=== PATIENT | male | born 1955 | race Caucasian/White ===

== ENCOUNTER → 2016-12-06 | Outpatient (CLI) | payer OTHER ==
[~2016-12-06] VITALS: Ht 190.5 cm; Wt 74.8 kg
[~2016-12-06] MED LIST: ASPI81TA85 PO; LIDOCAINE 2% INJ 100 MG/5 ML SDV (FOR ANES.) As Ordered ONE; NEXI20CA PO; NS 1,000 ML IV ONE; PROPOFOL 200 MG/20 ML VIAL As Ordered ONE
--- NOTE | 2016-12-06 10:30 | ROOR ---
Patient Name: Albert Bruce Procedure Date: 12/06/2016 10:10 AM Date of : 1955 Age: 61 Room: [facility] Gender: Male Note Status: Finalized Procedure: Total Colonoscopy to Cecum Indications: High risk colon cancer surveillance: Personal history of colonic polyps, Last colonoscopy: 2011 Providers: Howard Maldonado MD Referring MD: LEOLA BHAGAT MD Requesting Provider: Medicines: Monitored Anesthesia Care Complications: No immediate complications. Procedure: Pre-Anesthesia Assessment: - The heart rate, respiratory rate, oxygen saturations, blood pressure, adequacy of pulmonary ventilation, and response to care were monitored throughout the procedure. The Colonoscope was introduced through the anus and advanced to the cecum, identified by appendiceal orifice and ileocecal valve. The colonoscopy was performed without difficulty. The patient tolerated the procedure well. The quality of the bowel preparation was excellent. Findings: The perianal and digital rectal examinations were normal. Non-bleeding internal hemorrhoids were found during retroflexion. The hemorrhoids were small and Grade I (internal hemorrhoids that do not prolapse). No other significant abnormalities were identified in a careful examination of the remainder of the colon. The exam was otherwise without abnormality on direct and retroflexion views. Impression: - Non-bleeding internal hemorrhoids. - The examination was otherwise normal on direct and retroflexion views. - No specimens collected. - The exam was otherwise normal to the cecum. Recommendation: - Patient has a contact number available for emergencies. The signs and symptoms of potential delayed complications were discussed with the patient. Return to normal activities tomorrow. Written discharge instructions were provided to the patient. - High fiber diet. - Discharge patient to home. - Continue present medications. - Repeat colonoscopy in 5 years for surveillance. - Return to referring physician. - The findings and recommendations were discussed with the patient's family. Howard Maldonado MD Howard Maldonado MD 12/06/2016 10:30:12 AM This report has been signed electronically. Number of Addenda: 0 Note Initiated On: 12/06/2016 10:10 AM Estimated Blood Loss: Estimated blood loss: none.
[2016-12-06 11:04] VITALS: BP 120/82
== END | disposition home or self-care (01) ==
LOC: M OPP 09:19
PROVIDERS: ATTEND Internal Medicine Gastroenterology
DX: Z12.11 Encounter for screening for malignant neoplasm of colon (principal); K64.0 First degree hemorrhoids; Z86.010 Personal history of colon polyps; R12 Heartburn; K21.9 Gastro-esophageal reflux disease without esophagitis; G47.30 Sleep apnea, unspecified; R06.83 Snoring; F17.290 Nicotine dependence, other tobacco product, uncomplicated; Z88.0 Allergy status to penicillin; Z79.899 Other long term (current) drug therapy; Z79.82 Long term (current) use of aspirin; Z80.8 Family history of malignant neoplasm of other organs or systems; Z80.3 Family history of malignant neoplasm of breast

== ENCOUNTER → 2018-11-09 | Outpatient (REF) | payer OTHER ==
[~2018-11-09] MED LIST changes: -LIDOCAINE 2% INJ 100 MG/5 ML SDV (FOR ANES.) As Ordered ONE; -NS 1,000 ML IV ONE; -PROPOFOL 200 MG/20 ML VIAL As Ordered ONE
[2018-11-09 12:24] LABS: BASO % 1.2 % (0.0-1.0); EOS % 0.3 % (0.0-3.0); HEMATOCRIT 41.4 % (42.0-52.0); HEMOGLOBIN 13.2 g/dl (13.5-17.5); MEAN CORPUSCULAR HEMOGLOBIN 28.4 pg (27.0-33.0); MEAN CORPUSCULAR HGB CONC 31.9 g/dl (32.0-36.5); MONO # 0.3 10^3/uL (0.0-0.8); NEUTROPHILS # 1.9 10^3/uL (1.8-7.7); NEUTROPHILS % 58.2 % (36.0-66.0); PLATELET COUNT, AUTOMATED 226 10^3/uL (150-450); RED BLOOD COUNT 4.65 10^6/uL (4.30-6.10); WHITE BLOOD COUNT 3.2 10^3/uL (4.0-10.0)
[2018-11-09 12:43] LABS: ALBUMIN 3.7 GM/DL (3.2-5.2); ALT/SGPT 28 U/L (12-78); BILIRUBIN,TOTAL 0.4 MG/DL (0.2-1.0); BLOOD UREA NITROGEN 23 MG/DL (7-18); CALCIUM LEVEL 8.4 MG/DL (8.8-10.2); CARBON DIOXIDE LEVEL 29 MEQ/L (21-32); CHLORIDE LEVEL 108 MEQ/L (98-107); CHOLESTEROL LEVEL 194 MG/DL (<200); CHOLESTEROL RISK RATIO 2.811 (<5); CREATININE FOR GFR 0.89 MG/DL (0.70-1.30); GLOMERULAR FILTRATION RATE > 60.0 (>49); GLUCOSE, FASTING 105 MG/DL (70-100); HDL CHOLESTEROL 69 MG/DL (>40); LDL CHOLESTEROL 117 MG/DL (<100); NON-HDL-C 125 MG/DL; POTASSIUM SERUM 4.7 MEQ/L (3.5-5.1); SODIUM LEVEL 141 MEQ/L (136-145); TRIGLYCERIDES LEVEL 41 MG/DL (<150)
== END ==
LOC: M SFHCCLAY 08:01
PROVIDERS: ATTEND Nurse Practitioner Family
DX: Z00.00 Encounter for general adult medical examination without abnormal findings (principal); Z13.220 Encounter for screening for lipoid disorders; Z86.008 Personal history of in-situ neoplasm of other site

== ENCOUNTER → 2018-11-28 | Outpatient (REF) | payer OTHER ==
[2018-11-28 19:20] LABS: BASO % 0.9 % (0.0-1.0); EOS # 0.1 10^3/uL (0.0-0.50); EOS % 1.2 % (0.0-3.0); HEMATOCRIT 38.4 % (42.0-52.0); HEMOGLOBIN 12.4 g/dl (13.5-17.5); LYMPH # 1.8 10^3/uL (1.5-4.5); LYMPH % 42.6 % (24.0-44.0); MEAN CORPUSCULAR HEMOGLOBIN 28.7 pg (27.0-33.0); MEAN CORPUSCULAR HGB CONC 32.3 g/dl (32.0-36.5); MEAN CORPUSCULAR VOLUME 88.9 fl (80.0-96.0); MONO # 0.4 10^3/uL (0.0-0.8); MONO % 8.4 % (0.0-5.0); NEUTROPHILS % 46.7 % (36.0-66.0); PLATELET COUNT, AUTOMATED 221 10^3/uL (150-450); RED BLOOD COUNT 4.32 10^6/uL (4.30-6.10); WHITE BLOOD COUNT 4.3 10^3/uL (4.0-10.0)
[2018-11-28 19:36] LABS: HEMOGLOBIN A1c 5.5 %
== END ==
LOC: M SFHCCLAY 13:42
PROVIDERS: ATTEND Nurse Practitioner Family
DX: R73.9 Hyperglycemia, unspecified (principal); D64.9 Anemia, unspecified
CPT/HCPCS: 82607; 83036; 83550; 84425; 85025; G0463

== ENCOUNTER 2019-04-18 12:26 | Day surgery (SDC) | payer MEDICARE, OTHER ==
[~2019-04-18] VITALS: Ht 193 cm; Wt 85.7 kg
[~2019-04-18 12:26] MED LIST changes: +NS 1,000 ML IV ONE; +PROTPAK PO
[2019-04-18] MEDS ORDERED: PROPOFOL 200 MG/20 ML VIAL As Ordered ONE (13:21)
[2019-04-18] MEDS ORDERED: LIDOCAINE 2% INJ 100 MG/5 ML SDV (FOR ANES.) As Ordered ONE (13:21)
[2019-04-18] MEDS ORDERED: fentaNYL 100 MCG/2 ML INJECTION (J3010) As Ordered ONE (14:07)
--- NOTE | 2019-04-18 14:21 | ROOR ---
Patient Name: Albert Bruce Procedure Date: 04/18/2019 2:06 PM Date of : 1955 Age: 64 Room: [facility] Gender: Male Note Status: Finalized Procedure: Upper Endoscopy + Biopsies Indications: Heartburn, Exclusion of Girard's esophagus Providers: Howard Maldonado MD Referring MD: Julia Layton NP Requesting Provider: Medicines: Monitored Anesthesia Care Complications: No immediate complications. Procedure: Pre-Anesthesia Assessment: - The heart rate, respiratory rate, oxygen saturations, blood pressure, adequacy of pulmonary ventilation, and response to care were monitored throughout the procedure. The Endoscope was introduced through the mouth, and advanced to the second part of duodenum. The upper GI endoscopy was accomplished without difficulty. The patient tolerated the procedure well. Findings: The Z-line was regular and was found 45 cm from the incisors. Multiple biopsies were obtained with cold forceps for evaluation to rule out Girard's Esophagus randomly at the gastroesophageal junction. Localized mild inflammation characterized by congestion (edema) and erythema was found in the gastric antrum. Biopsies were taken with a cold forceps for Helicobacter pylori testing. The exam of the duodenum was otherwise normal. Impression: - Z-line regular, 45 cm from the incisors. - Mucosal changes suspicious for gastritis. Biopsied. - Multiple biopsies were obtained at the gastroesophageal junction. - The examination was otherwise normal. Recommendation: - Patient has a contact number available for emergencies. The signs and symptoms of potential delayed complications were discussed with the patient. Return to normal activities tomorrow. Written discharge instructions were provided to the patient. - High fiber diet. - Discharge patient to home. - Continue present medications. - Await pathology results. - Telephone GI clinic for pathology results in 1 week. - Return to referring physician. - The findings and recommendations were discussed with the patient's family. Howard Maldonado MD Howard Maldonado MD 04/18/2019 2:21:19 PM Electronically signed by Howard Maldonado MD Number of Addenda: 0 Note Initiated On: 04/18/2019 2:06 PM Estimated Blood Loss: Estimated blood loss: none.
[2019-04-18 14:47] VITALS: BP 148/87
== END 2019-04-18 14:50 | disposition home or self-care (01) ==
LOC: M OPP 12:26
PROVIDERS: ATTEND Internal Medicine Gastroenterology
DX: R12 Heartburn (principal); K31.89 Other diseases of stomach and duodenum; G47.30 Sleep apnea, unspecified; Z79.899 Other long term (current) drug therapy; Z88.0 Allergy status to penicillin
CPT/HCPCS: 43239; 88305; J3010

== ENCOUNTER → 2019-07-11 | Outpatient (REF) | payer MEDICARE, OTHER ==
[~2019-07-11] MED LIST changes: -NS 1,000 ML IV ONE
== END ==
LOC: M LAB REF 15:35
PROVIDERS: ATTEND Orthopaedic Surgery Hand Surgery
DX: M85.441 Solitary bone cyst, right hand (principal); L90.5 Scar conditions and fibrosis of skin

== ENCOUNTER → 2019-07-13 | Outpatient (REF) | payer MEDICARE, OTHER ==
[2019-07-13 15:55] LABS: APPEARANCE, URINE CLEAR (CLEAR); BACTERIA, URINE AUTO NEGATIVE (NEGATIVE); BILIRUBIN, URINE AUTO NEGATIVE (NEGATIVE); BLOOD, URINE BLOOD NEGATIVE (NEGATIVE); COLOR, URINE YELLOW (YELLOW); GLUCOSE, URINE (UA) AUTO NEGATIVE (NEGATIVE); KETONE, URINE AUTO NEGATIVE (NEGATIVE); LEUKOCYTE ESTERASE, URINE AUTO NEGATIVE (NEGATIVE); MUCUS, URINE SMALL (NEGATIVE); NITRITE, URINE AUTO NEGATIVE (NEGATIVE); PROTEIN, URINE AUTO NEGATIVE (NEGATIVE); RBC, URINE AUTO 1 /HPF (0-3); SPECIFIC GRAVITY URINE AUTO 1.013 (1.002-1.035); SQUAMOUS EPITHELIAL CELL UR AU 0 /HPF (0-6); UROBILINOGEN, URINE AUTO 0.2 mg/dL (0.0-2.0); WBC, URINE AUTO 0 /HPF (0-3)
== END ==
LOC: M SMT 13:23
PROVIDERS: ATTEND Nurse Practitioner Family
DX: N41.9 Inflammatory disease of prostate, unspecified (principal)
CPT/HCPCS: 51798; 81001; 87086; G0463

== ENCOUNTER → 2019-09-20 | Outpatient (REF) | payer MEDICARE, OTHER | LOC: M LAB REF 10:23 | PROVIDERS: ATTEND Dermatology | DX: C44.320 Squamous cell carcinoma of skin of unspecified parts of face (principal); L90.5 Scar conditions and fibrosis of skin ==

== ENCOUNTER → 2020-03-20 | Outpatient (REF) | payer MEDICARE, OTHER ==
[~2020-03-20] MED LIST changes: -ASPI81TA85 PO; +ASPI81TA86 PO
[2020-03-20 11:42] LABS: BASO # 0.1 10^3/uL (0.0-0.2); BASO % 1.2 % (0.0-1.0); EOS # 0.1 10^3/uL (0.0-0.5); EOS % 2.6 % (0.0-3.0); HEMATOCRIT 45.3 % (42.0-52.0); HEMOGLOBIN 14.5 g/dl (13.5-17.5); LYMPH # 1.9 10^3/uL (1.5-5.0); LYMPH % 44.7 % (24.0-44.0); MEAN CORPUSCULAR HEMOGLOBIN 29.2 pg (27.0-33.0); MEAN CORPUSCULAR VOLUME 91.3 fl (80.0-96.0); MONO # 0.5 10^3/uL (0.0-0.8); MONO % 11.8 % (0.0-5.0); NEUTROPHILS # 1.6 10^3/uL (1.5-8.5); NEUTROPHILS % 39.5 % (36.0-66.0); PLATELET COUNT, AUTOMATED 225 10^3/uL (150-450); RED BLOOD COUNT 4.96 10^6/uL (4.30-6.10); WHITE BLOOD COUNT 4.2 10^3/uL (4.0-10.0)
[2020-03-20 12:23] LABS: ALBUMIN 3.8 GM/DL (3.2-5.2); ALT/SGPT 27 U/L (12-78); BILIRUBIN,TOTAL 0.5 MG/DL (0.2-1.0); BLOOD UREA NITROGEN 19 MG/DL (7-18); CALCIUM LEVEL 8.8 MG/DL (8.8-10.2); CARBON DIOXIDE LEVEL 32 MEQ/L (21-32); CHLORIDE LEVEL 106 MEQ/L (98-107); CHOLESTEROL LEVEL 218 MG/DL (<200); CHOLESTEROL RISK RATIO 3.159 (<5); CREATININE FOR GFR 0.96 MG/DL (0.70-1.30); FREE T4 0.82 NG/DL (0.76-1.46); GLOMERULAR FILTRATION RATE > 60.0 (>49); GLUCOSE, FASTING 91 MG/DL (70-100); HDL CHOLESTEROL 69 MG/DL (>40); IRON (FE) 69 UG/DL (65-175); LDL CHOLESTEROL 140 MG/DL (<100); NON-HDL-C 149 MG/DL; POTASSIUM SERUM 4.9 MEQ/L (3.5-5.1); SODIUM LEVEL 141 MEQ/L (136-145); TOTAL PROTEIN 6.8 GM/DL (6.4-8.2); TRIGLYCERIDES LEVEL 47 MG/DL (<150)
== END ==
LOC: M SFHCCLAY 07:15
PROVIDERS: ATTEND Nurse Practitioner Family
DX: D50.9 Iron deficiency anemia, unspecified (principal); K21.9 Gastro-esophageal reflux disease without esophagitis; Z13.220 Encounter for screening for lipoid disorders; Z00.00 Encounter for general adult medical examination without abnormal findings; E07.9 Disorder of thyroid, unspecified; E78.00 Pure hypercholesterolemia, unspecified

== ENCOUNTER → 2020-09-19 | Outpatient (REF) | payer MEDICARE, OTHER | LOC: M SFHCCLAY 13:09 | PROVIDERS: ATTEND Physician Assistant | DX: R33.9 Retention of urine, unspecified (principal) | CPT/HCPCS: 81002; 87086; G0463 ==

== ENCOUNTER → 2020-09-23 | Outpatient (REF) | payer MEDICARE, OTHER | LOC: M SFHCCLAY 10:26 | PROVIDERS: ATTEND Physician Assistant | DX: R33.9 Retention of urine, unspecified (principal) ==

== ENCOUNTER 2020-11-07 09:47 | Inpatient (IN) | payer MEDICARE, OTHER ==
[~2020-11-07] VITALS: Ht 195.6 cm; Wt 89.0 kg
[2020-11-07] MEDS ORDERED: MORPHINE 2 MG/ML 1ML VIAL (J2270) IV ONE ×3 (10:05→11:30)
--- NOTE | 2020-11-07 10:31 | REP ---
INDICATION: trauma COMPARISON: None. TECHNIQUE: Three views right ankle. FINDINGS: There is an intra-articular distal tibial fracture. The medial malleolus appears involved as well as the posterior malleolus. There is lateral and posterior displacement of the talar dome with respect to the tibia. There is an oblique fracture of the distal fibula with lateral displacement and angulation. IMPRESSION: Distal tibial and fibular fractures with disruption of the tibiotalar joint as discussed above. <Electronically signed by Mehul Ellison > 11/07/20 1029
--- NOTE | 2020-11-07 10:32 | REP ---
INDICATION: trauma COMPARISON: None. TECHNIQUE: AP and lateral right lower leg. FINDINGS: There is an intra-articular distal tibial fracture. The medial malleolus appears involved as well as the posterior malleolus. There is lateral and posterior displacement of the talar dome with respect to the tibia. There is an oblique fracture of the distal fibula with lateral displacement and angulation. IMPRESSION: Distal tibial and fibular fractures with disruption of the tibiotalar joint as discussed above. <Electronically signed by Mehul Ellison > 11/07/20 1029
[2020-11-07 10:40] LABS: BASO % 0.4 % (0.0-1.0); EOS % 0.5 % (0.0-3.0); HEMATOCRIT 38.7 % (42.0-52.0); HEMOGLOBIN 12.4 g/dl (13.5-17.5); LYMPH # 0.8 10^3/uL (1.5-5.0); LYMPH % 9.9 % (24.0-44.0); MEAN CORPUSCULAR HEMOGLOBIN 29.7 pg (27.0-33.0); MEAN CORPUSCULAR VOLUME 92.8 fl (80.0-96.0); MONO # 0.4 10^3/uL (0.0-0.8); MONO % 5.3 % (2.0-8.0); NEUTROPHILS # 6.4 10^3/uL (1.5-8.5); NEUTROPHILS % 83.6 % (36.0-66.0); PLATELET COUNT, AUTOMATED 218 10^3/uL (150-450); RED BLOOD COUNT 4.17 10^6/uL (4.30-6.10); WHITE BLOOD COUNT 7.7 10^3/uL (4.0-10.0)
[2020-11-07 11:02] LABS: ALBUMIN 3.6 GM/DL (3.2-5.2); BILIRUBIN,DIRECT 0.2 MG/DL (0.0-0.2); BILIRUBIN,TOTAL 0.4 MG/DL (0.2-1.0); TOTAL PROTEIN 6.7 GM/DL (6.4-8.2)
[2020-11-07] MEDS ORDERED: NS 1,000 ML IV SCH (11:40)
[2020-11-07] MEDS: propofoL 200 MG/20 ML VIAL IV.PROC PRN ×12 (11:47→14:36)
--- NOTE | 2020-11-07 15:02 | REP ---
INDICATION: reduction. COMPARISON: None. TECHNIQUE: Two spot views of the right ankle were obtained using a portable C-arm device status post close reduction in my absentia. 24 seconds of fluoroscopy time was provided for the exam. FINDINGS: The previously described tibiotalar subluxation has been reduced. Follow-up with plain radiography is recommended due to the limitations of this exam. IMPRESSION: As above <Electronically signed by Pierre Matos > 11/07/20 [id number]
[2020-11-07] MEDS ORDERED: MORPHINE 2 MG/ML 1ML VIAL (J2270) IV PRN (15:20)
[2020-11-07] MEDS: ACETAMINOPHEN 500 MG TAB PO SCH ×2 (16:00→21:52)
--- NOTE | 2020-11-07 16:00 | CR ---
CONSULTATION DATE: 11/07/2020 REASON FOR CONSULTATION AND CHIEF COMPLAINT: Right ankle pain and deformity. HISTORY OF PRESENT ILLNESS: The patient is a 65-year-old male who was doing [employer] earlier today when he sustained a twisting injury to his right lower extremity. He noted immediate onset of pain, swelling and inability to bear weight on his right lower extremity. He presented to the emergency department for further evaluation. Otherwise, he has no other areas of pain, tenderness and no numbness or tingling. PAST MEDICAL HISTORY: GERD and a prior bout of prostatitis, otherwise healthy. PAST SURGICAL HISTORY: Noncontributory. MEDICATIONS: See medical rec conciliation. ALLERGIES: None. REVIEW OF SYSTEMS: A 14 point review of systems was conducted and all was negative except for what is in HPI. 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 PHYSICAL EXAMINATION: GENERAL: He is well-developed, well-nourished, in no acute distress. NEURO: Alert and oriented x4. PSYCH: Normal mood and affect. CARDIAC: Regular rate and rhythm. RESPIRATORY: Nonlabored breathing. Equal chest rise and fall. ABDOMEN: Nontender. SKIN: Intact, no ecchymosis, swelling or breaks in the skin. MUSCULOSKELETAL: Focused exam of right lower extremity demonstrates an obvious deformity about the ankle. The patient is tender to palpation here and his range of motion is limited secondary to pain. He has no tenderness to palpation along the leg or knee or in the foot. He has sensation to light touch in the sural, saphenous, DP and SP and tibial nerves. Motor intact in the EHL, FHL, gastroc-soleus complex, tibialis anterior. He has 2+ PT and DP pulses with brisk capillary refill in all the digits. There are no blisters of the skin and no puckering of the skin. IMAGING: Radiographs of the right ankle demonstrate right ankle fracture dislocation with distal fracture and posterior malleolus fracture. ASSESSMENT: This is a 65-year-old male, otherwise healthy with a right ankle fracture dislocation. PLAN: I had a long discussion with the patient and his in the emergency department regarding his condition. I recommend sedated closed reduction and splint immobilization. Recommend surgical intervention with open reduction and internal fixation to allow him to have a stable ankle and allow for earlier immobilization and getting back to activities. The patient underwent sedation with the emergency department and a closed reduction was performed under fluoroscopy and demonstrated adequate reduction on the AP and lateral films. Now we will have the patient get a CT scan, we will talk to the operating room and we will have him got to the OR likely tomorrow for open reduction and internal fixation, distal fibula and posterior malleolar fracture pending any changes that we see on the CT scan. For now, the patient will get admitted to the hospitalist NPO at midnight, nonweightbearing, right lower extremity, DVT prophylaxis will just be SCD on the contralateral leg at least until surgery. Pain control per primary team and aggressive elevation of the right lower extremity.
[2020-11-07] MEDS ORDERED: SM S160C PO (16:09)
[2020-11-07] MEDS ORDERED: SM M250T PO (16:09)
[2020-11-07] MEDS ORDERED: BACTDSTA PO (16:09)
[2020-11-07 16:35] LABS: INR 1.02; PROTHROMBIN TIME 13.6 SECONDS (12.5-14.3)
[2020-11-07 16:37] LABS: PARTIAL THROMBOPLASTIN TIME 28.6 SECONDS (24.2-38.5)
--- NOTE | 2020-11-07 17:53 | HPEPDOC ---
General Date of Admission Nov 07, 2020 at 15:18 Date of Service: Nov 07, 2020 Chief Complaint The patient is a 65-year-old male admitted with a reason for visit of Closed Fracture Of Distal End Of Rt Tib And Fib. Source: Patient History of Present Illness Mr. Bruce is a 65 year old male who is here after traumatic injury to right foot. He was participating in [employer] and going down the slide, he unexpectedly impacted harder on the right foot. He was taken to the ER and was found to have right ankle fracture. Orthopedic surgeon, Dr. Ndiaye, evaluated patient in the ED. Planned for surgical intervention tomorrow. Otherwise, patient was in good health prior to injury. Denies any fever/chills, chest pain, dyspnea, abdominal pain, diarrhea, or dysuria. Patient will be admitted for planned surgery tomorrow morning. Home Medications Scheduled Magnesium (Magnesium) 250 Mg Tablet, 250 MG PO QHS, (Reported) Saw Hastings (Saw Hastings) 160 Mg Capsule, 160 MG PO DAILY, (Reported) Sulfamethoxazole/Trimethoprim (Sulfamethoxazole-Tmp Ds Tablet) 1 Each Tablet, 1 TAB PO BID, (Reported) Allergies Coded Allergies: amoxicillin (Verified Allergy, Mild, rash, 11/07/20) Past Medical History Medical History 1. History of BCC to right forehead 2. Melanoma in situ left thigh 3. 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 Inguinal hernia repair 1956 2. Tonsillectomy/adenoidectomy 1959 3. Eustachian tube dysfunction, lanced TM 1960 4. Septoplasty from injury 1986 5. Ablation right leg varicose vein 2008 6. Melanoma removal left leg/thigh 1999 7. Mohs right forehead 1998 8. Meniscal repair arthroscopy 2005 Family History Father: at 73 yo. History of pancreatic cancer Mother: at 84 yo. History of non Hodgkin's lymphoma Social History * Smoker: cigar (once a month) Alcohol: occationally Drugs: denies A-FIB/CHADSVASC A-FIB History Current/History of A-Fib/PAF?: No Review of Systems Constitutional: Denies: Chills, Fever Eyes: Denies: Vision change ENT: Denies: Sore Throat Skin: Denies: Rash Pulmonary: Denies: Dyspnea, Cough Cardiovascular: Denies: Chest Pain Gastrointestinal: Denies: Abdominal Pain, Diarrhea Genitourinary: Denies: Dysuria Hematologic: Denies: Bruising Musculoskeletal: Reports: Foot Pain (right) Neurological: Denies: Numbness Psych: Denies: Anxiety, Depression Physical Examination General Exam: Positive: Alert, Cooperative Eye Exam: Positive: EOMI; Negative: Sclera icteric ENT Exam: Positive: Atraumatic Neck Exam: Positive: Supple Chest Exam: Positive: Clear to auscultation Heart Exam: Positive: Rate Normal, Regular Rhythm Abdomen Exam: Positive: Normal bowel sounds, Soft; Negative: Tenderness Extremity Exam: Positive: Other (right leg in caste); Negative: Edema (left leg) Neuro Exam: Positive: Normal Speech, Cranial Nerves 3-12 NL Psych Exam: Positive: Mental status NL, Mood NL Vital Signs Vital Signs Date Time Temp Pulse Resp B/P (MAP) Pulse Ox O2 Delivery O2 Flow Rate FiO2 11/07/20 14:22 Nasal Cannula 2.0 11/07/20 12:45 68 141/83 (102) 100 11/07/20 11:44 100 11/07/20 11:30 18 11/07/20 10:07 95.8 Laboratory Data Labs 24H Laboratory Tests 2 11/07/20 10:20: Immature Granulocyte % (Auto) 0.3, Neutrophils (%) (Auto) 83.6H, Lymphocytes (%) (Auto) 9.9L, Monocytes (%) (Auto) 5.3, Eosinophils (%) (Auto) 0.5, Basophils (%) (Auto) 0.4, Neutrophils # (Auto) 6.4, Lymphocytes # (Auto) 0.8L, Monocytes # (Auto) 0.4, Eosinophils # (Auto) 0.0, Basophils # (Auto) 0.0, Nucleated Red Blood Cells % (auto) 0.0, Total Bilirubin 0.4, Direct Bilirubin 0.2, Aspartate Amino Transf (AST/SGOT) 32, Alanine Aminotransferase (ALT/SGPT) 31, Alkaline Phosphatase 36L, Total Protein 6.7, Albumin 3.6, Albumin/Globulin Ratio 1.2 11/07/20 10:31: POC Glucose (Misc Panel) 105, POC Sodium (Misc Panel) 140, POC Potassium (Misc Panel) 4.5, POC Chloride (Misc Panel) 103, POC Total CO2 (Misc Panel) 23.0, POC Blood Urea Nitrogen (Misc Panel 23, POC Ionized Calcium (Misc Panel) 4.5, POC Creatinine (Misc Panel) 1.2, POC Hematocrit (Misc Panel) 39.0 11/07/20 15:56: Prothrombin Time 13.6, Prothromb Time International Ratio 1.02, Activated Partial Thromboplast Time 28.6 CBC/BMP Laboratory Tests 11/07/20 10:20 Microbiology Microbiology 11/07/20 Respiratory Virus Panel (PCR) ([facility]) - Final, Complete Assessment/Plan Mr. Bruce is a 65 year old male who is here after traumatic injury to right foot. Orthopedic surgeon consulted, Dr. Ndiaye. Plan for surgery tomorrow morning. Plan / VTE VTE Prophylaxis Ordered?: Yes Plan Plan 1. Right ankle fracture -Seen on XR -Pain control with acetaminophen, oxycodone, and IV morphine -Orthopedic surgery, Dr. Ndiaye consulted -Plan for surgery tomorrow -NPO -Hold AM heparin dose 2. DVT ppx -Heparin subQ Disposition: Pending surgery tomorrow VIANEY DALY DO Nov 07, 2020 16:53
[2020-11-07 20:30] VITALS: BP 131/81
[2020-11-07] MEDS ORDERED: HEPARIN SOD (PORCINE) 5000UNITS/ML 1ML VIAL/SYRINGE SC SCH (21:00)
[2020-11-07] MEDS: oxyCODONE 5MG TAB PO PRN (21:52)
[2020-11-08] VITALS (8 sets, daily range): BP systolic 128–153; BP diastolic 80–89
[2020-11-08] MEDS: oxyCODONE 5MG TAB PO PRN ×2 (05:41→20:46)
[2020-11-08] MEDS ORDERED: ONDANSETRON 4MG/2ML VIAL As Ordered ONE (06:04)
[2020-11-08] MEDS ORDERED: LIDOCAINE 2% 100MG/5ML SDV (FOR ANES.) As Ordered ONE (06:04)
[2020-11-08] MEDS ORDERED: propofoL 200 MG/20 ML VIAL As Ordered ONE (06:04)
[2020-11-08] MEDS ORDERED: SUGAMMADEX SODIUM 500 MG/5 ML VIAL (BRIDION) As Ordered ONE (06:04)
[2020-11-08] MEDS ORDERED: dexameTHASONE 4 MG/ML 1ML VIAL (J1100 PER 1MG) As Ordered ONE (06:04)
[2020-11-08] MEDS ORDERED: MIDAZOLAM INJ 2MG/2ML VIAL (J2250 PER 1MG) As Ordered ONE (06:04)
[2020-11-08] MEDS ORDERED: fentaNYL 250 MCG/5 ML INJECTION (J3010) As Ordered ONE (06:04)
[2020-11-08] MEDS ORDERED: ROCURONIUM BROMIDE 50 MG/5 ML VIAL As Ordered ONE (06:04)
[2020-11-08] MEDS ORDERED: ACETAMINOPHEN 1000MG 100ML IV BTL (OFIRMEV) (J0131 PER 10MG) As Ordered ONE (06:05)
[2020-11-08] MEDS ORDERED: PHENYLephrine 500MCG 5ML (100MCG/ML) SYRINGE As Ordered ONE (06:05)
[2020-11-08] MEDS ORDERED: ePHEDrine SULFATE 25 MG/5 ML(5MG/ML) SYRINGE As Ordered ONE (06:05)
[2020-11-08 06:38] LABS: HEMATOCRIT 39.7 % (42.0-52.0); HEMOGLOBIN 12.8 g/dl (13.5-17.5); MEAN CORPUSCULAR HEMOGLOBIN 29.6 pg (27.0-33.0); MEAN CORPUSCULAR HGB CONC 32.2 g/dl (32.0-36.5); MEAN CORPUSCULAR VOLUME 91.9 fl (80.0-96.0); PLATELET COUNT, AUTOMATED 203 10^3/uL (150-450); RED BLOOD COUNT 4.32 10^6/uL (4.30-6.10); WHITE BLOOD COUNT 5.1 10^3/uL (4.0-10.0)
[2020-11-08 07:01] LABS: BLOOD UREA NITROGEN 13 MG/DL (7-18); CARBON DIOXIDE LEVEL 28 MEQ/L (21-32); CHLORIDE LEVEL 107 MEQ/L (98-107); CREATININE FOR GFR 1.02 MG/DL (0.70-1.30); GLOMERULAR FILTRATION RATE > 60.0 (>49); GLUCOSE, FASTING 95 MG/DL (70-100); SODIUM LEVEL 136 MEQ/L (136-145)
--- NOTE | 2020-11-08 07:48 | ECGEPIP ---
[facility] - ED Test Date: 2020-11-07 Pat Name: MULUGETA LOPEZ Department: Room: [place] [address] Gender: Male Ota: STEVE : 1955 Requested By: Jeannette Villegas Order Number: [id number] Reading MD: Brian Rebolledo Measurements Intervals [place] Rate: 60 P: 62 ID: [id number] QRS: -28 QRSD: 82 T: 31 QT: 378 QTc: 378 Interpretive Statements Normal sinus rhythm Comparison tracing not on file Electronically Signed on 11-08-2020 7:48:21 EDT by Brian Rebolledo
[2020-11-08] MEDS ORDERED: LIDOCAINE 1% MDV 20ML VIAL XX ONE (08:25)
[2020-11-08] MEDS ORDERED: ROPIvacaine 0.5% 30ML INJECTION (J2795 PER 1MG) XX ONE (08:25)
[2020-11-08] MEDS ORDERED: dexameTHASONE 10MG/1ML VIAL PRES.FREE (J1100 PER 1MG) As Ordered ONE (08:32)
[2020-11-08] MEDS ORDERED: ceFAZolin 2 GM/D5W 50 ML IV BAG (J0690 PER 500MG) As Ordered ONE ×2 (08:34→12:34)
[2020-11-08] MEDS ORDERED: TRANEXAMIC ACID 100 MG/ML 10ML VIAL As Ordered ONE (08:35)
[2020-11-08] MEDS: fentaNYL 100 MCG/2 ML INJECTION (J3010) IV PRN ×3 (08:36→14:40)
[2020-11-08] MEDS: MIDAZOLAM INJ 2MG/2ML VIAL (J2250 PER 1MG) IV PRN ×2 (08:36→08:41)
[2020-11-08] MEDS: ACETAMINOPHEN 500 MG TAB PO SCH ×3 (09:00→18:47)
[2020-11-08] MEDS ORDERED: MEPERIDINE INJ 25 MG/ML VIAL (J2175) As Ordered ONE (13:39)
--- NOTE | 2020-11-08 13:53 | REP ---
INDICATION: FLUORO GUIDANCE. COMPARISON: None. TECHNIQUE: 13 fluoroscopic spot views obtained in my absentia during ORIF of previously described ankle fracture. 106.9 seconds of fluoroscopy time was provided for the exam FINDINGS: Previously described tibial and fibular fractures have been open the reduced and internally fixed. The alignment appears near anatomical. IMPRESSION: As above. Consider standard radiograph follow-up. <Electronically signed by Pierre Matos > 11/08/20 [id number]
--- NOTE | 2020-11-08 14:30 | REP ---
INDICATION: S/P ORIF RIGHT ANKEL, 3 VIEW REQUESTED. COMPARISON: None. TECHNIQUE: 3 limited views status post ORIF with cast in place FINDINGS: The previously described fractures have been openly reduced and internally fixed with internal fixation plate and screws. The alignment is near anatomical. Overlying casting material obscures the bony detail. IMPRESSION: As above <Electronically signed by Pierre Matos > 11/08/20 [id number]
[2020-11-08] MEDS ORDERED: ONDANSETRON 4MG/2ML VIAL IV PRN ×2 (14:50→16:20)
[2020-11-08] MEDS ORDERED: oxyCODONE 5MG TAB PO PRN (14:50)
[2020-11-08] MEDS ORDERED: LR 1,000 ML IV SCH (14:50)
[2020-11-08] MEDS ORDERED: MEPERIDINE INJ 25 MG/ML VIAL (J2175) IV PRN (14:50)
[2020-11-08] MEDS ORDERED: fentaNYL 100 MCG/2 ML INJECTION (J3010) IV PRN (14:50)
--- NOTE | 2020-11-08 15:54 | RO ---
OPERATIVE NOTE DATE OF OPERATION: 11/08/2020 PREOPERATIVE DIAGNOSIS: Right ankle unstable fracture. POSTOPERATIVE DIAGNOSIS: Right ankle unstable fracture. OPERATION PERFORMED: Right ankle open reduction and internal fixation, bimalleolar type. SURGEON: Chet Ndiaye MD SHEET HEATER HELPER: ANESTHESIA: INDICATION FOR OPERATION: The patient is a 65-year-old male who was doing a Tough Mudder the day prior to surgery, who sustained a twisting injury to his right ankle. He sustained a right ankle fracture dislocation that was closed with a distal fibular fracture and a posterior malleolar fracture. He was closed reduced in the emergency department and was planned to go to the operating room for ankle stabilization today. He underwent open reduction and internal fixation of his right ankle. Before surgery, he was counseled on risks and benefits of the surgery and risks of the surgery to include but not limited to bleeding, infection, damage to nearby structures, pain, stiffness, need for further surgery. He was able to sign an informed consent. All questions were answered to his full satisfaction. MATERIAL FORWARDED: None. DESCRIPTION OF FINDINGS: The patient had a large posterior malleolar fragment that reduced easily after provisional reduction of the fibula. Contralateral ankle x-ray was obtained demonstrating that both ankles when in their anatomic position appear slightly short relative to the "dime sign" seen on the AP and mortise view of the ankle. This confirmed that once we had reduced the fibula, it was indeed out to length compared to the contralateral side. Stress test was done after final fixation of the posterior malleolus and fibula and demonstrated no increased medial clear space or increased talar translation laterally. The skin was then closed without any concern. INFECTION CLASSIFICATION: 1, clean. ESTIMATED BLOOD LOSS: 75 mL DESCRIPTION OF OPERATION: The patient was met in the preoperative holding area where the correct name, identity, operative site, laterality and procedure were verified to be correct without discrepancies. The operative site was marked by myself. The patient underwent a preoperative block by anesthesia. He was then taken to the operating room by nursing and anesthesia providers. He underwent general anesthetic and placed under general anesthesia without complication. He then had his splint removed and the right lower extremity was then cleaned with Hibiclens and isopropyl alcohol. A thigh pneumatic tourniquet was placed on the right lower extremity. The patient was then transitioned from supine in the gurney to prone on the operative bed. All bony prominences were padded in standard fashion. After he was positioned and we were happy, x-ray came in and confirmed that we had appropriate positioning and to allow for adequate x-rays of the right ankle during surgery. The right lower extremity was then bolstered appropriately to allow for easier lateral view without getting the other ankle involved with the x-ray. Also please note that x-ray was taken of the contralateral ankle intraop as stated previously above to use as a comparison view for fibular length. Once we were satisfied with the positioning, the patient's right lower extremity was then prepped and draped in the usual sterile fashion. A timeout was then called and the patient's name, identity, operative site, laterality and procedure were verified without discrepancies. It was also confirmed the patient received weight based Ancef within one hour of incision. He also received 1 gm of tranexamic acid before surgery started as well. Next, the bony landmarks were marked for the fibula as well as the lateral border of the Achilles tendon. Incision was split between these two landmarks. This area was marked and then an Esmarch was used to exsanguinate the limb and tourniquet was inflated to 250 mmHg. Total tourniquet time was 130 minutes. Next, a posterolateral approach was started through the incision that was previously marked. The peroneal muscle belly was initially identified and the fascia was opened and this was then preserved to be closed later at the end of the case. We first started identifying the plane through which we can get through the posterior malleolus. The peroneals were swept laterally easily and the FHL was identified and swept off the posterior border of the tibia. Next, we attempted to expose the distal fibular fracture. Subperiosteal dissection off of the posterior border of the fibula was performed and then we were able to get adequate exposure of the fibula. The fibula was then debrided of its fracture hematoma and provisionally pinned after it was reduced. We used this provisional fixation to help get the posterior malleolus closer in line with its anatomic position. Once this was pinned, I went back to the posterior malleolus and mobilized the tissue without unhinging it from its attachment to the fibula by the PITFL. Once this was adequately immobilized, bulb irrigation was used to clean out any fragments that were exposed that could be going intra-articular. Once this was done, a ballpoint device was used to reduce this fragment and then it was pinned in place under fluoroscopic guidance. Adequate reduction was achieved and a plate was chosen for placement for the posterior malleolus. I elected to use a plate with a triangular base which allowed for five distal locking screws to be placed through the posterior malleolar fragment. Once the plate was down, the initial screw that was placed was just above the fracture site in an anti-lag fashion. This allowed the plate to be sucked down to the bone and conform to the tejon anatomy. Three proximal screws above the fracture were then placed. There was poor bite of the cortical screw so locking screws were used for three screws above the level of the fracture. Five screws were chosen above the level of the fracture. One of these was a cortical screw to suck the plate down to bone. The other four were lockers. These were placed under fluoroscopic guidance to assure no penetration into the joint. Once the posterior malleolus was fixed, I turned my attention to the distal fibula fracture. The fibula was reduced and initially it was thought that the fibula was locking length despite having a perfect reduction visually. This was then compared to the contralateral ankle x-ray and demonstrated that it was symmetric to the contralateral uninjured side. We proceeded with lag screw fixation. Two lag screws were placed, lagging by technique. 2.7 mm lag screws were placed B to A, taking care to countersink these to prevent peroneal irritation. Once these were placed and in satisfactory position, a 9-hole, 1/3 tubular plate was then placed on the lateral aspect of the fibula. It was placed under fluoroscopic guidance to assure that we had appropriate distance below and above the fracture site for screw fixation. Three unicortical locking screws were placed distal the fracture and three bicortical screws were placed above the level of the fracture. Good purchase was achieved in all these. Once this was completed, the ankle was assessed for syndesmotic instability. On mortise view, stress x-ray was taken with external rotation stress applied and demonstrated no increase to lateral translation or medial clear space widening. No further stabilization was required. Next, the wound was then copiously irrigated with three liters of normal saline under gravity flow with cysto tubing. By the three hour guicho of the surgery, another dosing of 2 gm of Ancef was then given. The wound was then closed in layers and we had no trouble closing the wound. After final closure, sterile dressings were applied and a well-padded L and U splint was placed. Once this had been secured, the patient was then aroused from anesthesia, having tolerated the procedure well without any complication. Postoperatively, he will likely go home same day of surgery. DVT chemoprophylaxis will be per the primary team although he will be ambulatory and may not need any formal DVT chemoprophylaxis. He will remain nonweightbearing to his right lower extremity. We will have him follow up in about 2-3 weeks for wound check and removal of the splint and transition to a Cam boot. The patient was instructed to aggressively elevate his ankle above the level of his heart at all times especially for the next several days. We will see the patient back in 2-3 weeks for wound check likely with Dr. Turner in clinic. The patient received preoperative antibiotics. He will continue to get postop antibiotics if he stays in the hospital any more than eight hours after his last dose. If he leaves then he will not need any further antibiotics. DVT chemoprophylaxis per primary team.
[2020-11-08] MEDS ORDERED: ceFAZolin SOD 2 GM in IV 1 EA IV SCH (17:00)
--- NOTE | 2020-11-08 18:58 | IPNPDOC ---
Subjective Date Seen The patient was seen on 11/08/20. Subjective Chief Complaint/HPI Mr. Bruce is a 65 year old male who is here after traumatic injury to right foot. Today, Dr. Ndiaye took patient to right ankle open reduction and internal fixation. Patient was seen after surgery. He was not feeling well. He was nauseous and fatigued. Will monitor overnight and have PT work with him tomorrow morning. Objective Physical Examination General Exam: Positive: Alert, Cooperative Eye Exam: Positive: EOMI; Negative: Sclera icteric ENT Exam: Positive: Atraumatic Neck Exam: Positive: Supple Chest Exam: Positive: Clear to auscultation Heart Exam: Positive: Rate Normal, Regular Rhythm Abdomen Exam: Positive: Normal bowel sounds, Soft; Negative: Tenderness Extremity Exam: Positive: Other (right leg in caste); Negative: Edema (left leg) Neuro Exam: Positive: Normal Speech, Cranial Nerves 3-12 NL Psych Exam: Positive: Mental status NL, Mood NL Assessment /Plan Assessment Mr. Bruce is a 65 year old male who is here after traumatic injury to right foot. Orthopedic surgeon consulted, Dr. Ndiaye. He took patient to the OR on 11/08/20 for right ankle open reduction and internal fixation. After surgery, patient was fatigued and nauseous. He would not have not been able to use the crutches well. Will monitor overnight. Plan/VTE VTE Prophylaxis Ordered?: Yes Plan 1. Right ankle fracture -Seen on XR -Pain control with acetaminophen, oxycodone, and IV morphine -Orthopedic surgery, Dr. Ndiaye consulted -Took patient tot he OR on 11/08/20 for right ankle open reduction and internal fixation 2. DVT ppx -Heparin subQ Disposition: PT HSE ordered for tomorrow. Patient is non-weight bearing on right leg and patient can use crutches. VS, I&O, 24H, Fishbone Vital Signs/I&O Vital Signs Date Time Temp Pulse Resp B/P (MAP) Pulse Ox O2 Delivery O2 Flow Rate FiO2 11/08/20 17:55 97.3 68 18 148/83 (104) 96 Nasal Cannula 2.0 11/07/20 11:44 100 I&O- Last 24 Hours up to 6 AM 11/08/20 06:00 Intake Total 820 ml Output Total 850 ml Balance -30 ml Laboratory Data 24H LABS Laboratory Tests 2 11/08/20 06:00: Nucleated Red Blood Cells % (auto) 0.0, Anion Gap 1L, Glomerular Filtration Rate > 60.0, Calcium Level 8.0L CBC/BMP Laboratory Tests 11/08/20 06:00 Microbiology Microbiology 11/07/20 Respiratory Virus Panel (PCR) ([facility]) - Final, Complete VIANEY DALY DO Nov 08, 2020 18:58
[2020-11-08] MEDS: ceFAZolin SOD 2 GM in IV 1 EA IV SCH (20:47)
[2020-11-09] MEDS: ACETAMINOPHEN 500 MG TAB PO SCH ×2 (00:09→09:06)
[2020-11-09 02:00] VITALS: BP 131/73
[2020-11-09] MEDS: ceFAZolin SOD 2 GM in IV 1 EA IV SCH (04:40)
[2020-11-09 05:37] VITALS: BP 135/77
[2020-11-09 06:47] LABS: HEMATOCRIT 39.4 % (42.0-52.0); MEAN CORPUSCULAR VOLUME 90.8 fl (80.0-96.0); PLATELET COUNT, AUTOMATED 191 10^3/uL (150-450); RED BLOOD COUNT 4.34 10^6/uL (4.30-6.10); WHITE BLOOD COUNT 7.2 10^3/uL (4.0-10.0)
[2020-11-09 07:14] LABS: BLOOD UREA NITROGEN 10 MG/DL (7-18); CALCIUM LEVEL 8.3 MG/DL (8.8-10.2); CARBON DIOXIDE LEVEL 31 MEQ/L (21-32); CHLORIDE LEVEL 105 MEQ/L (98-107); CREATININE FOR GFR 0.99 MG/DL (0.70-1.30); GLOMERULAR FILTRATION RATE > 60.0 (>49); GLUCOSE, FASTING 107 MG/DL (70-100); POTASSIUM SERUM 4.8 MEQ/L (3.5-5.1); SODIUM LEVEL 137 MEQ/L (136-145)
[2020-11-09] MEDS: oxyCODONE 5MG TAB PO PRN (09:07)
[2020-11-09] MEDS ORDERED: ACET-683 PO ×2 (10:01→10:06)
[2020-11-09] MEDS ORDERED: ASPI81CH33 PO (10:01)
[2020-11-09] MEDS ORDERED: OXYC-517 PO (10:01)
--- NOTE | 2020-11-09 15:52 | DS.PDOC ---
Discharge Summary General Date of Admission Nov 07, 2020 at 15:18 Date of Discharge Nov 09, 2020 Specialist/Consultants Involve Orthopedic surgery, Dr. Ndiaye Discharge Summary PROCEDURES PERFORMED DURING STAY: Right ankle open reduction and internal fixation, bimalleolar type by Dr. Ndiaye on 11/08/20 ADMITTING DIAGNOSES: 1. Right ankle fracture secondary to trauma DISCHARGE DIAGNOSES: 1. Right ankle fracture secondary to trauma COMPLICATIONS/CHIEF COMPLAINT: Closed Fracture Of Distal End Of Rt Tib And Fib. HISTORY OF PRESENT ILLNESS: Mr. Bruce is a 65 year old male who is here after traumatic injury to right foot. He was participating in [employer] and going down the slide, he unexpectedly impacted harder on the right foot. He was taken to the ER and was found to have right ankle fracture. Orthopedic surgeon, Dr. Ndiaye, evaluated patient in the ED. Planned for surgical intervention tomorrow. Otherwise, patient was in good health prior to injury. Denies any fever/chills, chest pain, dyspnea, abdominal pain, diarrhea, or dysuria. Patient will be admitted for planned surgery tomorrow morning. HOSPITAL COURSE: Mr. Bruce was taken to the OR on 11/08/[address] Ndiaye for a right ankle open reduction and internal fixation, bimalleolar type. After surgery, he was nauseous and fatigued. We did not have PT available. We monitored him overnight, and he did better the next day. He cleared physical therapy. When I saw him in the morning, he felt better and felt ready for home. We discussed risk of DVT and decided on aspirin while he had the cast. Patient was discharged home today. DISCHARGE MEDICATIONS: Please see below. ALLERGIES: Please see below. PHYSICAL EXAMINATION ON DISCHARGE: VITAL SIGNS: Please see below. GENERAL: Comfortable, in no apparent distress. HEENT: Head normocephalic/atraumatic, EOMI, sclera clear. NECK: Supple, no JVD. RESPIRATORY: Lungs clear to auscultation bilaterally, no rales, wheeze or rhonchi. CARDIOVASCULAR: Regular rate and rhythm. ABDOMEN: Soft, nontender, no guarding or rebound tenderness. Normal bowel sounds. MUSCLE SKELETAL: Right leg in cast. Left leg had no pitting edema NEUROLOGICAL: CN 312 grossly intact, no focal deficits noted. PSYCHOLOGICAL: Normal mood and affect LABORATORY DATA: Please see below. IMAGING: Radiologist interpretation Right Tibia, Fibular, and Ankle XR FINDINGS: There is an intra-articular distal tibial fracture. The medial malleolus appears involved as well as the posterior malleolus. There is lateral and posterior displacement of the talar dome with respect to the tibia. There is an oblique fracture of the distal fibula with lateral displacement and angulation. IMPRESSION: Distal tibial and fibular fractures with disruption of the tibiotalar joint as discussed above. PROGNOSIS: Good ACTIVITY: Walk with crutches, non-weight bearing to right leg. Elevated right leg as instructed by orthopedic surgery. DIET: As tolerated DISCHARGE PLAN: Home DISPOSITION: 01 Home, Self-Care. DISCHARGE INSTRUCTIONS: 1. Follow up with PCP within 1 to 2 weeks 2. Follow up with Orthopedic surgery in 2 to 3 weeks 3. Take aspirin 81mg a day for DVT ppx DISCHARGE CONDITION: Stable. Total time spent on discharge planning, discharge summary, and medication reconciliation: 45 minutes Vital Signs/I&Os Vital Signs Date Time Temp Pulse Resp B/P (MAP) Pulse Ox O2 Delivery O2 Flow Rate FiO2 11/09/20 10:06 16 11/09/20 05:37 97.9 68 135/77 (96) 99 Nasal Cannula 2.0 11/07/20 11:44 100 I&O- Last 24 Hours up to 6 AM 11/09/20 06:00 Intake Total 3250 ml Output Total 2175 ml Balance 1075 ml Laboratory Data Labs 24H Laboratory Tests 2 11/09/20 06:17: Nucleated Red Blood Cells % (auto) 0.0, Anion Gap 1L, Glomerular Filtration Rate > 60.0, Calcium Level 8.3L CBC/BMP Laboratory Tests 11/09/20 06:17 Microbiology Microbiology 11/07/20 Respiratory Virus Panel (PCR) ([facility]) - Final, Complete Discharge Medications Scheduled Aspirin (Aspirin) 81 Mg Tab.chew, 81 MG PO DAILY for pain Magnesium (Magnesium) 250 Mg Tablet, 250 MG PO QHS, (Reported) Saw [place] (Saw [place]) 160 Mg Capsule, 160 MG PO DAILY, (Reported) Sulfamethoxazole/Trimethoprim (Sulfamethoxazole-Tmp Ds Tablet) 1 Each Tablet, 1 TAB PO BID, (Reported) Scheduled PRN Acetaminophen (Acetaminophen) 500 Mg Tablet, 1,000 MG PO TIDP PRN for pain Oxycodone HCl (Oxycodone HCl) 5 Mg Tablet, 5 MG PO Q4HP PRN for MODERATE PAIN (PS 5-7) Allergies Coded Allergies: amoxicillin (Verified Allergy, Mild, rash, 11/07/20) VIANEY DALY DO Nov 09, 2020 15:52
== END 2020-11-09 11:19 | disposition home or self-care (01) | DRG 494 ==
LOC: EDBD 09:47 → M ED 09:47 → M ED INP 15:18 → M MS5PR 20:20
PROVIDERS: ADMIT Internal Medicine; ATTEND Internal Medicine
PROC: 0QSH04Z Reposition Left Tibia with Internal Fixation Device, Open Approach (ICD-10-PCS; 2020-11-08)
PROC: 0QSK04Z Reposition Left Fibula with Internal Fixation Device, Open Approach (ICD-10-PCS; principal; 2020-11-08 08:30)
DX: S82.431A Displaced oblique fracture of shaft of right fibula, initial encounter for closed fracture (principal); S82.391A Other fracture of lower end of right tibia, initial encounter for closed fracture; S82.51XA Displaced fracture of medial malleolus of right tibia, initial encounter for closed fracture; S82.61XA Displaced fracture of lateral malleolus of right fibula, initial encounter for closed fracture; Z79.899 Other long term (current) drug therapy; Z20.822 Contact with and (suspected) exposure to COVID-19; R53.83 Other fatigue; W09.0XXA Fall on or from playground slide, initial encounter; Y92.9 Unspecified place or not applicable

== ENCOUNTER → 2020-11-27 | Outpatient (CLI) | payer MEDICARE, OTHER ==
[~2020-11-27] MED LIST changes: +ACET-683 PO; +ASPI81CH33 PO; +BACTDSTA PO; +OXYC-517 PO; +SM M250T PO; +SM S160C PO
--- NOTE | 2020-11-27 12:39 | REP ---
INDICATION: SURGICAL F/U. COMPARISON: Multiple the latest 11/08/2020 a three-view exam with cast in place TECHNIQUE: Four views with cast removed FINDINGS: Previous ORIF status quo. Internal fixation plates and fixing screws status quo. No change in alignment. No acute abnormality. IMPRESSION: No significant change compared to the prior exam other than removal of the cast. <Electronically signed by Pierre Matos > 11/27/20 [id number]
== END ==
LOC: M SOG 10:11
PROVIDERS: ATTEND Orthopaedic Surgery
DX: Z48.89 Encounter for other specified surgical aftercare (principal)

== ENCOUNTER → 2020-12-24 | Outpatient (CLI) | payer MEDICARE, OTHER ==
--- NOTE | 2020-12-24 15:28 | REP ---
INDICATION: DISPL TRIMALLEOL FX R LOW LEG, SUBS FOR CLOS FX W ROUTN HEAL. COMPARISON: 11/27/2020 TECHNIQUE: Standing four view series FINDINGS: Status post ORIF distal tibia and distal fibula status quo. Smoothly marginated well corticated ossific density seen distal to the tip of the medial malleolus status quo. There is no acute fracture, dislocation, or subluxation. IMPRESSION: As above <Electronically signed by Pierre Matos > 12/24/20 [id number]
== END ==
LOC: M SOG 14:25
PROVIDERS: ATTEND Orthopaedic Surgery
DX: S82.851D Displaced trimalleolar fracture of right lower leg, subsequent encounter for closed fracture with routine healing (principal); W18.30XD Fall on same level, unspecified, subsequent encounter; Y92.009 Unspecified place in unspecified non-institutional (private) residence as the place of occurrence of the external cause

== ENCOUNTER → 2020-12-25 | Outpatient (REF) | payer MEDICARE, OTHER | LOC: M SFHCCLAY 15:47 | PROVIDERS: ATTEND Physician Assistant | DX: R35.0 Frequency of micturition (principal) | CPT/HCPCS: 81002; 87086; G0463 ==

== ENCOUNTER → 2021-02-05 | Outpatient (CLI) | payer MEDICARE, OTHER ==
--- NOTE | 2021-02-05 14:00 | REP ---
INDICATION: RT ANKLE FX. COMPARISON: 12/24/2020 TECHNIQUE: AP, lateral, oblique views right ankle FINDINGS: Patient is again noted to be status post open reduction and fixation for distal fibular and posterior malleolar fractures. Underlying age-related degenerative changes remains stable. No obvious new acute process. IMPRESSION: Satisfactory open reduction and fixation with healing. Stable underlying chronic changes. <Electronically signed by Bill Mendez > 02/05/21 [id number]
== END ==
LOC: M SOG 12:02
PROVIDERS: ATTEND Orthopaedic Surgery
DX: S82.851D Displaced trimalleolar fracture of right lower leg, subsequent encounter for closed fracture with routine healing (principal); X58.XXXD Exposure to other specified factors, subsequent encounter; Y92.9 Unspecified place or not applicable; Y93.9 Activity, unspecified; Y99.9 Unspecified external cause status

== ENCOUNTER → 2021-05-14 | Outpatient (CLI) | payer MEDICARE, OTHER ==
--- NOTE | 2021-05-14 08:55 | REP ---
INDICATION: RT ANKLE FX. COMPARISON: 02/05/2021 TECHNIQUE: AP, lateral, oblique views of the right ankle FINDINGS: Satisfactory stable open reduction and fixation for posterior and lateral malleolar fractures. Underlying age-related degenerative changes again noted and stable. Mild soft tissue swelling noted. IMPRESSION: Stable fixation. Mild residual ankle swelling. <Electronically signed by Bill Mendez > 05/14/21 [id number]
== END ==
LOC: M SOG 07:56
PROVIDERS: ATTEND Student in an Organized Health Care Education/Training Program
DX: S82.851D Displaced trimalleolar fracture of right lower leg, subsequent encounter for closed fracture with routine healing (principal); X58.XXXD Exposure to other specified factors, subsequent encounter; Y92.9 Unspecified place or not applicable; Y93.9 Activity, unspecified; Y99.9 Unspecified external cause status; M79.89 Other specified soft tissue disorders; M19.071 Primary osteoarthritis, right ankle and foot

== ENCOUNTER → 2021-06-11 | Outpatient (CLI) | payer MEDICARE, OTHER ==
[~2021-06-11] MED LIST changes: +RA S160C PO; -SM S160C PO
== END ==
LOC: M CLY 08:15 → EDBD 08:15
PROVIDERS: ATTEND Nurse Practitioner Family
DX: R10.84 Generalized abdominal pain (principal); R19.7 Diarrhea, unspecified
CPT/HCPCS: 74019; G0463

== ENCOUNTER → 2021-07-03 | Outpatient (REF) | payer MEDICARE, OTHER ==
[2021-07-03 16:43] LABS: BLOOD UREA NITROGEN 21 MG/DL (7-18); CALCIUM LEVEL 8.8 MG/DL (8.8-10.2); CARBON DIOXIDE LEVEL 26 MEQ/L (21-32); CHLORIDE LEVEL 105 MEQ/L (98-107); CREATININE FOR GFR 0.92 MG/DL (0.70-1.30); GLOMERULAR FILTRATION RATE > 60.0 (>49); GLUCOSE, FASTING 87 MG/DL (70-100); POTASSIUM SERUM 4.5 MEQ/L (3.5-5.1); SODIUM LEVEL 139 MEQ/L (136-145)
== END ==
LOC: M SFHCCLAY 10:22
PROVIDERS: ATTEND Nurse Practitioner Family
DX: R10.84 Generalized abdominal pain (principal)

== ENCOUNTER → 2021-07-13 | Outpatient (CLI) | payer MEDICARE, OTHER ==
[~2021-07-13] MED LIST changes: +GASTROGRAFIN SOLUTION 30ML (Q9963) As Ordered ONE; +ISOVUE-370 76% 100ML VIAL As Ordered ONE
== END ==
LOC: M RAD 09:00
PROVIDERS: ATTEND Nurse Practitioner Family
DX: R10.84 Generalized abdominal pain (principal); R19.7 Diarrhea, unspecified; K57.90 Diverticulosis of intestine, part unspecified, without perforation or abscess without bleeding
CPT/HCPCS: 74177; Q9963; Q9967

== ENCOUNTER → 2021-09-30 | Outpatient (CLI) | payer MEDICARE, OTHER ==
[~2021-09-30] MED LIST changes: -GASTROGRAFIN SOLUTION 30ML (Q9963) As Ordered ONE; -ISOVUE-370 76% 100ML VIAL As Ordered ONE; +OMEP-173; +TAMS1CAP17
== END ==
LOC: M LABSMTC 09:12
PROVIDERS: ATTEND Anesthesiology
DX: Z01.818 Encounter for other preprocedural examination (principal); Z11.52 Encounter for screening for COVID-19

== ENCOUNTER 2021-10-05 07:39 | Day surgery (SDC) | payer MEDICARE, OTHER ==
[~2021-10-05] VITALS: Ht 193 cm; Wt 83.9 kg
[~2021-10-05 07:39] MED LIST changes: +LIDOCAINE 2% 100MG/5ML SDV (FOR ANES.) As Ordered ONE; +NS 1,000 ML IV ONE; +fentaNYL 100 MCG/2 ML INJECTION As Ordered ONE; +propofoL 500 MG/50 ML VIAL As Ordered ONE
[2021-10-05 09:36] VITALS: BP 143/85
== END 2021-10-05 09:36 | disposition home or self-care (01) ==
LOC: M OPP 07:39
PROVIDERS: ATTEND Internal Medicine Gastroenterology
DX: Z12.11 Encounter for screening for malignant neoplasm of colon (principal); Z86.010 Personal history of colon polyps; K63.5 Polyp of colon; K64.0 First degree hemorrhoids; K31.89 Other diseases of stomach and duodenum; R12 Heartburn; Z79.899 Other long term (current) drug therapy; Z88.0 Allergy status to penicillin
CPT/HCPCS: 43239; 45380; 88305; J3010

== ENCOUNTER → 2021-11-05 | Outpatient (CLI) | payer MEDICARE, OTHER ==
[~2021-11-05] MED LIST changes: -LIDOCAINE 2% 100MG/5ML SDV (FOR ANES.) As Ordered ONE; -NS 1,000 ML IV ONE; -fentaNYL 100 MCG/2 ML INJECTION As Ordered ONE; -propofoL 500 MG/50 ML VIAL As Ordered ONE
== END ==
LOC: M SOG 08:40
PROVIDERS: ATTEND Student in an Organized Health Care Education/Training Program
DX: S82.851D Displaced trimalleolar fracture of right lower leg, subsequent encounter for closed fracture with routine healing (principal)

== ENCOUNTER → 2023-12-22 | Outpatient (REF) | payer MEDICARE, OTHER ==
[2023-12-22 12:39] LABS: BASO # 0.1 10^3/uL (0.0-0.2); BASO % 1.1 % (0.0-1.0); EOS # 0.2 10^3/uL (0.0-0.5); HEMATOCRIT 40.2 % (42.0-52.0); HEMOGLOBIN 12.4 g/dl (13.5-17.5); LYMPH # 1.7 10^3/uL (1.5-5.0); LYMPH % 36.8 % (24.0-44.0); MEAN CORPUSCULAR HEMOGLOBIN 25.6 pg (27.0-33.0); MEAN CORPUSCULAR HGB CONC 30.8 g/dl (32.0-36.5); MEAN CORPUSCULAR VOLUME 82.9 fl (80.0-96.0); MONO # 0.5 10^3/uL (0.0-0.8); MONO % 11.4 % (2.0-8.0); NEUTROPHILS # 2.1 10^3/uL (1.5-8.5); NEUTROPHILS % 46.5 % (36.0-66.0); PLATELET COUNT, AUTOMATED 284 10^3/uL (150-450); RED BLOOD COUNT 4.85 10^6/uL (4.30-6.10); WHITE BLOOD COUNT 4.5 10^3/uL (4.0-10.0)
[2023-12-22 12:44] LABS: ALBUMIN 3.7 G/DL (3.2-5.2); ALKALINE PHOSPHATASE 37 U/L (46-116); ALT/SGPT 24 U/L (7.0-40); AST/SGOT 23 U/L (<34); BILIRUBIN,TOTAL 0.6 MG/DL (0.3-1.2); BLOOD UREA NITROGEN 18 MG/DL (9-23); CALCIUM LEVEL 8.8 MG/DL (8.3-10.6); CARBON DIOXIDE LEVEL 29 MMOL/L (20-31); CHLORIDE LEVEL 107 MMOL/L (98-107); CREATININE FOR GFR 0.98 MG/DL (0.70-1.30); GLOMERULAR FILTRATION RATE > 60.0 (>49); GLUCOSE, FASTING 102 MG/DL (74-106); MAGNESIUM LEVEL 2.1 MG/DL (1.8-2.4); POTASSIUM SERUM 4.7 MMOL/L (3.5-5.1); SODIUM LEVEL 140 MMOL/L (136-145); TOTAL PROTEIN 6.8 G/DL (5.7-8.2)
[2023-12-23 07:50] LABS: IRON (FE) 37 UG/DL (65-175); PERCENT SATURATION 10.7 % (19.7-50.0); TOTAL IRON BINDING CAPACITY 346 UG/DL (250-425)
[2023-12-23 07:53] LABS: FERRITIN 3.4 NG/ML (10.5-307.3)
== END ==
LOC: M SFHCCLAY 08:10
PROVIDERS: ATTEND Physician Assistant
DX: R10.84 Generalized abdominal pain (principal); D50.9 Iron deficiency anemia, unspecified

== ENCOUNTER → 2023-12-23 | Outpatient (REF) | payer MEDICARE, OTHER | LOC: M SFHCCLAY 11:01 | PROVIDERS: ATTEND Physician Assistant | DX: R10.84 Generalized abdominal pain (principal); R19.5 Other fecal abnormalities; A04.72 Enterocolitis due to Clostridium difficile, not specified as recurrent; R19.7 Diarrhea, unspecified ==

== ENCOUNTER 2025-01-16 07:18 | Day surgery (SDC) | payer MEDICARE, OTHER ==
[~2025-01-16] VITALS: Ht 190.5 cm; Wt 88.6 kg
[~2025-01-16 07:18] MED LIST changes: +B-12100010 PO; +DRON400T PO; +ELIQ5TAB PO; +MAGN250T7 PO; -OMEP-173; +OMEP-173 PO; +OMEP40CA4 PO; -RA S160C PO; +SAW160CA23 PO; +SUCR1TA PO; -TAMS1CAP17; +TAMS1CAP17 PO
[2025-01-16] MEDS ORDERED: LIDOCAINE 2% 100 MG/5 ML SDV (FOR ANES.) As Ordered ONE (08:18)
[2025-01-16 08:25] VITALS: TEMP 99
[2025-01-16 08:46] VITALS: BP 159/85; O2SAT 97
== END 2025-01-16 08:57 | disposition home or self-care (01) ==
LOC: M OPP 07:18
PROVIDERS: ATTEND Internal Medicine Gastroenterology
DX: K44.9 Diaphragmatic hernia without obstruction or gangrene (principal); I48.91 Unspecified atrial fibrillation; Z88.1 Allergy status to other antibiotic agents; Z79.01 Long term (current) use of anticoagulants; Z79.899 Other long term (current) drug therapy

== ENCOUNTER → 2025-02-12 | Outpatient (CLI) | payer MEDICARE, OTHER ==
[~2025-02-12] MED LIST changes: +ATOR1TAB19 PO; +CARV6.25 PO; +CETI10TA PO; +HYDR1CR TOP; +IBUP-1114 PO; +NORV5TAB PO; +TRAM50TA2 PO
== END ==
LOC: M EKG 12:36
PROVIDERS: ATTEND Internal Medicine Cardiovascular Disease
DX: I48.0 Paroxysmal atrial fibrillation (principal)

== ENCOUNTER → 2025-02-21 | Outpatient (CLI) | payer OTHER, MEDICARE ==
[~2025-02-21] MED LIST changes: -ATOR1TAB19 PO; -CARV6.25 PO; -CETI10TA PO; -HYDR1CR TOP; -IBUP-1114 PO; -NORV5TAB PO; -TRAM50TA2 PO
== END ==
LOC: M CARPUL 13:56
PROVIDERS: ATTEND Internal Medicine Cardiovascular Disease
DX: R94.31 Abnormal electrocardiogram [ECG] [EKG] (principal)

== ENCOUNTER 2025-02-25 18:45 | Inpatient (IN) | payer OTHER, MEDICARE ==
[~2025-02-25] VITALS: Ht 193 cm; Wt 93.0 kg
[2025-02-25] MEDS ORDERED: MORPHINE 4 MG/ML 1 ML VIAL IV PRN (20:10)
[2025-02-25] MEDS: NS (Normal Saline) 0.9% 1,000 ML IV ONE (20:47)
[2025-02-25] MEDS: ACETAMINOPHEN *IV* 1,000 MG in IV 1 EA IV ONE (20:47)
[2025-02-25] MEDS: MORPHINE 4 MG/ML 1 ML VIAL IV PRN (20:48)
[2025-02-25 21:22] LABS: BASO # 0.1 10^3/uL (0.0-0.2); BASO % 0.7 % (0.0-1.0); EOS # 0.1 10^3/uL (0.0-0.5); EOS % 0.8 % (0.0-3.0); LYMPH # 1.3 10^3/uL (1.5-5.0); LYMPH % 18.0 % (24.0-44.0); MONO # 0.5 10^3/uL (0.0-0.8); MONO % 7.0 % (2.0-8.0); NEUTROPHILS # 5.4 10^3/uL (1.5-8.5); NEUTROPHILS % 73.2 % (36.0-66.0); PLATELET COUNT, AUTOMATED 189 10^3/uL (150-450)
[2025-02-25] MEDS ORDERED: ATOR1TAB19 PO (21:31)
[2025-02-25] MEDS ORDERED: CARV6.25 PO (21:31)
[2025-02-25] MEDS ORDERED: HOME MED LIST COMPLETE! XX SCH (21:40)
[2025-02-25 21:44] LABS: CALCIUM LEVEL 8.3 MG/DL (8.3-10.6); CARBON DIOXIDE LEVEL 25.0 MMOL/L (20-31); CHLORIDE LEVEL 107.0 MMOL/L (98-107); CREATININE FOR GFR 0.95 MG/DL (0.70-1.30); GLOMERULAR FILTRATION RATE 85.6 (>42); MAGNESIUM LEVEL 2.1 MG/DL (1.8-2.4); POTASSIUM SERUM 4.2 MMOL/L (3.5-5.1); SODIUM LEVEL 144.0 MMOL/L (136-145)
[2025-02-25] MEDS: HYDROmorphone 2 MG TAB PO ONE (22:40)
[2025-02-25] MEDS: ONDANSETRON 4MG 2ML VIAL IV PRN (22:43)
[2025-02-26] VITALS (12 sets, daily range): BP systolic 130–176; BP diastolic 71–92; TEMP 97.3–98.9; O2SAT 93–100
[2025-02-26] MEDS: MORPHINE 4 MG/ML 1 ML VIAL IV PRN ×2 (02:22→07:46)
[2025-02-26] MEDS: D5W/LR 1,000 ML IV SCH (02:23)
[2025-02-26 06:18] LABS: INR 1.05
[2025-02-26 06:33] LABS: ALT/SGPT 19 U/L (7.0-40); AST/SGOT 26 U/L (<34); CALCIUM LEVEL 7.8 MG/DL (8.3-10.6); CARBON DIOXIDE LEVEL 28 MMOL/L (20-31); CHLORIDE LEVEL 107 MMOL/L (98-107); CREATININE FOR GFR 0.90 MG/DL (0.70-1.30); GLOMERULAR FILTRATION RATE > 90.0 (>42); POTASSIUM SERUM 4.0 MMOL/L (3.5-5.1); SODIUM LEVEL 143 MMOL/L (136-145)
[2025-02-26] MEDS: PANTOPRAZOLE 40MG VIAL IV SCH (08:41)
[2025-02-26] MEDS: SUCRALFATE 1 GM TAB PO SCH (12:00)
[2025-02-26] MEDS ORDERED: MIDAZOLAM INJ 2 MG/2 ML VIAL IV PRN (13:35)
[2025-02-26] MEDS ORDERED: ONDANSETRON 4MG 2ML VIAL As Ordered ONE (13:35)
[2025-02-26] MEDS ORDERED: LIDOCAINE 2% 100 MG/5 ML SDV (FOR ANES.) As Ordered ONE (13:35)
[2025-02-26] MEDS ORDERED: ROPIvacaine 0.5% 30ML VIAL PN ONE (13:35)
[2025-02-26] MEDS ORDERED: LIDOCAINE 1% SDV 5 ML VIAL PN ONE (13:35)
[2025-02-26] MEDS ORDERED: dexAMETHasone 4 MG/ML 1 ML VIAL As Ordered ONE (13:35)
[2025-02-26] MEDS ORDERED: ROCURONIUM BROMIDE 50MG/5ML VIAL As Ordered ONE (13:35)
[2025-02-26] MEDS ORDERED: MIDAZOLAM INJ 2 MG/2 ML VIAL As Ordered ONE (13:36)
[2025-02-26] MEDS ORDERED: dexmedeTOMIDine (4 MCG/ML) 200 MCG/50 ML BTL As Ordered ONE (13:36)
[2025-02-26] MEDS: MIDAZOLAM INJ 2 MG/2 ML VIAL IV PRN (13:45)
[2025-02-26] MEDS: LIDOCAINE 1% SDV 5 ML VIAL PN ONE (13:45)
[2025-02-26] MEDS: ROPIvacaine 0.5% 30ML VIAL PN ONE (13:51)
[2025-02-26] MEDS ORDERED: GLYCOPYRROLATE INJ 0.2 MG/ML 2 ML VIAL As Ordered ONE (15:00)
[2025-02-26] MEDS ORDERED: ACETAMINOPHEN 1000MG/100ML IV BAG As Ordered ONE (15:11)
[2025-02-26] MEDS ORDERED: SUGAMMADEX SODIUM 200 MG/2 ML VIAL As Ordered ONE (15:11)
[2025-02-26] MEDS: LR 1,000 ML IV SCH (15:25)
[2025-02-26] MEDS ORDERED: ONDANSETRON 4MG 2ML VIAL IV PRN (15:25)
[2025-02-26] MEDS ORDERED: HYDROmorphone HCL 2 MG/ML 1 ML VIAL As Ordered ONE (15:33)
[2025-02-26] MEDS: HYDROMORPHONE HCL 0.5 MG/0.5 ML SYRINGE IV PRN (16:01)
[2025-02-26] MEDS: ATORVASTATIN 10 MG TAB PO SCH (20:50)
[2025-02-26] MEDS: ceFAZolin SODIUM 2 GM in DEXTROSE 5% (D5W) ADV/MINI-BAG 50 ML IV SCH (23:37)
[2025-02-27] VITALS (8 sets, daily range): BP systolic 118–132; BP diastolic 61–79; TEMP 97.5–98.3; O2SAT 96–99
[2025-02-27] MEDS: KETOROLAC 30 MG/ML 1 ML VIAL IV PRN (09:51)
[2025-02-27] MEDS: MORPHINE 4 MG/ML 1 ML VIAL IV ONE (13:51)
[2025-02-27 16:02] LABS: BASO # 0.0 10^3/uL (0.0-0.2); BASO % 0.4 % (0.0-1.0); EOS # 0.1 10^3/uL (0.0-0.5); EOS % 0.9 % (0.0-3.0); LYMPH # 1.1 10^3/uL (1.5-5.0); LYMPH % 16.2 % (24.0-44.0); MONO # 0.9 10^3/uL (0.0-0.8); MONO % 13.6 % (2.0-8.0); NEUTROPHILS # 4.7 10^3/uL (1.5-8.5); NEUTROPHILS % 68.6 % (36.0-66.0); PLATELET COUNT, AUTOMATED 156 10^3/uL (150-450)
[2025-02-27 16:21] LABS: CALCIUM LEVEL 7.8 MG/DL (8.3-10.6); CARBON DIOXIDE LEVEL 28.0 MMOL/L (20-31); CHLORIDE LEVEL 104.0 MMOL/L (98-107); CREATININE FOR GFR 1.13 MG/DL (0.70-1.30); GLOMERULAR FILTRATION RATE 69.5 (>42); POTASSIUM SERUM 4.2 MMOL/L (3.5-5.1); SODIUM LEVEL 140.0 MMOL/L (136-145)
[2025-02-27] MEDS: APIXABAN 5 MG TAB PO SCH (21:38)
[2025-02-27] MEDS: PERCOCET 5MG/325MG TAB PO PRN (21:42)
[2025-02-28 03:41] VITALS: BP 126/70; TEMP 98.1; O2SAT 96
[2025-02-28 06:49] VITALS: BP 132/78; TEMP 97.5; O2SAT 99
[2025-02-28 07:14] LABS: BASO # 0.0 10^3/uL (0.0-0.2); BASO % 0.6 % (0.0-1.0); EOS # 0.1 10^3/uL (0.0-0.5); EOS % 2.4 % (0.0-3.0); LYMPH # 1.6 10^3/uL (1.5-5.0); LYMPH % 30.8 % (24.0-44.0); MONO # 0.7 10^3/uL (0.0-0.8); MONO % 13.1 % (2.0-8.0); NEUTROPHILS # 2.8 10^3/uL (1.5-8.5); NEUTROPHILS % 52.9 % (36.0-66.0); PLATELET COUNT, AUTOMATED 152 10^3/uL (150-450)
[2025-02-28 07:23] VITALS: BP 157/79; TEMP 97.3; O2SAT 99
[2025-02-28] MEDS ORDERED: MIRALAX *UNIT DOSE* 17 GM PACKET PO PRN (07:35)
[2025-02-28] MEDS ORDERED: SENNA 8.6 MG TAB PO PRN (07:35)
[2025-02-28 11:13] LABS: IRON (FE) 15.0 UG/DL (65-175); PERCENT SATURATION 6.9 % (19.7-50.0)
[2025-02-28] MEDS: PERCOCET 5MG/325MG TAB PO PRN (11:18)
[2025-02-28] MEDS ORDERED: NORV5TAB PO (13:21)
[2025-02-28] MEDS: FERRIC CARBOXYMALTOSE INJ 750 MG, VIAL MATE ADAPTER 1 EACH in NS 100 ML IV ONE (14:06)
[2025-02-28 14:17] VITALS: BP 147/75; TEMP 97.7; O2SAT 98
[2025-02-28 14:22] VITALS: BP 143/79; TEMP 98.7; O2SAT 99
[2025-03-01] MEDS ORDERED: amLODIPine 5 MG TAB PO SCH (09:00)
== END 2025-02-28 15:14 | DRG 481 ==
LOC: M ED 18:45 → EDBD 18:45 → M ED INP 22:18 → M PCU 02-26 02:10
PROVIDERS: ADMIT Student in an Organized Health Care Education/Training Program; ATTEND Student in an Organized Health Care Education/Training Program
PROC: 0QS736Z Reposition Left Upper Femur with Intramedullary Internal Fixation Device, Percutaneous Approach (ICD-10-PCS; principal; 2025-02-26 13:30)
DX: S72.142A Displaced intertrochanteric fracture of left femur, initial encounter for closed fracture (principal); D62 Acute posthemorrhagic anemia; I48.0 Paroxysmal atrial fibrillation; G47.33 Obstructive sleep apnea (adult) (pediatric); K21.9 Gastro-esophageal reflux disease without esophagitis; E78.5 Hyperlipidemia, unspecified; V18.0XXA Pedal cycle driver injured in noncollision transport accident in nontraffic accident, initial encounter; I95.1 Orthostatic hypotension; M85.80 Other specified disorders of bone density and structure, unspecified site; Z79.01 Long term (current) use of anticoagulants; Z79.899 Other long term (current) drug therapy; Z88.0 Allergy status to penicillin

== ENCOUNTER 2025-02-28 10:27 | Inpatient (IN) | payer MEDICARE, OTHER ==
[~2025-02-28] VITALS: Ht 193 cm; Wt 94.0 kg
[~2025-02-28 10:27] MED LIST changes: +ATOR1TAB19 PO; +CARV6.25 PO
[2025-02-28] MEDS ORDERED: BISACODYL 10 MG SUPP PR PRN (12:40)
[2025-02-28] MEDS ORDERED: SIMETHICONE 80MG CHEW TAB PO PRN (12:40)
[2025-02-28] MEDS ORDERED: ONDANSETRON 4MG ORAL DISINTEGRATING TAB PO PRN (12:40)
[2025-02-28] MEDS ORDERED: MAALOX 30 ML SUSP *UDC PO PRN (12:40)
[2025-02-28] MEDS ORDERED: NORV5TAB PO (13:21)
[2025-02-28 15:23] VITALS: BP 154/72; TEMP 98.3; O2SAT 97
[2025-02-28] MEDS: amLODIPine 5 MG TAB PO SCH (17:11)
[2025-02-28] MEDS: SUCRALFATE 1 GM TAB PO SCH (17:11)
[2025-02-28 20:00] VITALS: BP 148/77; TEMP 99.3; O2SAT 95
[2025-02-28] MEDS: APIXABAN 5 MG TAB PO SCH (20:31)
[2025-02-28] MEDS: ATORVASTATIN 10 MG TAB PO SCH (20:32)
[2025-02-28] MEDS: ACETAMINOPHEN 500 MG TAB PO SCH (20:33)
[2025-02-28] MEDS: OMEPRAZOLE 20MG CAP PO SCH (20:34)
[2025-03-01 04:00] VITALS: BP 138/82; TEMP 98.2; O2SAT 98
[2025-03-01 07:45] VITALS: BP 136/80
[2025-03-01 08:26] LABS: BASO # 0.0 10^3/uL (0.0-0.2); BASO % 0.4 % (0.0-1.0); EOS # 0.1 10^3/uL (0.0-0.5); EOS % 1.2 % (0.0-3.0); LYMPH # 0.8 10^3/uL (1.5-5.0); LYMPH % 9.9 % (24.0-44.0); MONO # 0.7 10^3/uL (0.0-0.8); MONO % 8.8 % (2.0-8.0); NEUTROPHILS # 6.2 10^3/uL (1.5-8.5); NEUTROPHILS % 79.3 % (36.0-66.0); PLATELET COUNT, AUTOMATED 167 10^3/uL (150-450)
[2025-03-01 08:51] LABS: ALT/SGPT 12 U/L (7.0-40); AST/SGOT 20 U/L (<34); CALCIUM LEVEL 8.0 MG/DL (8.3-10.6); CARBON DIOXIDE LEVEL 28 MMOL/L (20-31); CHLORIDE LEVEL 103 MMOL/L (98-107); CREATININE FOR GFR 0.82 MG/DL (0.70-1.30); GLOMERULAR FILTRATION RATE > 90.0 (>42); POTASSIUM SERUM 4.0 MMOL/L (3.5-5.1); SODIUM LEVEL 141 MMOL/L (136-145)
[2025-03-01] MEDS ORDERED: FLEET ENEMA PR PRN (09:05)
[2025-03-01] MEDS: BISACODYL 10 MG SUPP PR ONE (10:20)
[2025-03-01] MEDS: MIRALAX *UNIT DOSE* 17 GM PACKET PO SCH (10:25)
[2025-03-01] MEDS: SENNA 8.6 MG TAB PO SCH (10:26)
[2025-03-01 12:00] VITALS: BP 158/86; TEMP 99.1; O2SAT 98
[2025-03-01] MEDS: SODIUM CHLORIDE NASAL 0.65% SPRAY BTL (OCEAN) SCH (15:32)
[2025-03-01] MEDS: BISACODYL 5 MG TAB PO PRN (16:36)
[2025-03-01 20:00] VITALS: BP 163/77; TEMP 100.2; O2SAT 96
[2025-03-01] MEDS: SUCRALFATE 1 GM TAB PO SCH (20:21)
[2025-03-02 04:00] VITALS: BP 137/65; TEMP 100.1; O2SAT 93
[2025-03-02] MEDS: OMEPRAZOLE 20MG CAP PO SCH (08:49)
[2025-03-02 20:00] VITALS: BP 137/74; TEMP 98.1; O2SAT 94
[2025-03-02] MEDS: traZODone 25MG PER 1/2 TABLET PO ONE (21:51)
[2025-03-03 04:00] VITALS: BP 131/68; TEMP 97.8; O2SAT 99
[2025-03-03 12:00] VITALS: BP 138/72; TEMP 98.3; O2SAT 98
[2025-03-03 20:00] VITALS: BP 132/77; TEMP 99; O2SAT 97
[2025-03-04 04:00] VITALS: BP 122/69; TEMP 97.9; O2SAT 99
[2025-03-04] MEDS: MOM 30 ML SUSPENSION UDC PO PRN (06:32)
[2025-03-04 12:00] VITALS: BP 125/73; TEMP 97.7; O2SAT 96
[2025-03-04] MEDS: HYDROCORTISONE 1% CREAM 30 GM TOP SCH (16:00)
[2025-03-04 20:00] VITALS: BP 139/70; TEMP 97.7; O2SAT 99
[2025-03-05 04:00] VITALS: BP 129/73; TEMP 97.2; O2SAT 99
[2025-03-05 07:21] VITALS: BP 117/64
[2025-03-05 12:00] VITALS: BP 114/77; TEMP 98.6; O2SAT 97
[2025-03-05 20:00] VITALS: BP 129/66; TEMP 98.4; O2SAT 96
[2025-03-05] MEDS: CETIRIZINE 10 MG TAB PO PRN (22:09)
[2025-03-06 04:00] VITALS: BP 142/77; TEMP 98.8; O2SAT 93
[2025-03-06 12:00] VITALS: TEMP 98.8; O2SAT 97
[2025-03-06 20:00] VITALS: BP 136/69; TEMP 98.5; O2SAT 96
[2025-03-07 04:00] VITALS: BP 151/83; TEMP 98.1; O2SAT 100
[2025-03-07 12:00] VITALS: BP 132/67; TEMP 98.8; O2SAT 98
[2025-03-07 20:00] VITALS: BP 124/69; TEMP 98.4; O2SAT 99
[2025-03-08] MEDS: diphenhydrAMINE 50 MG/ML VIAL IV ONE (00:46)
[2025-03-08 04:00] VITALS: BP 137/75; TEMP 97.9; O2SAT 98
[2025-03-08 08:48] VITALS: BP 128/67
[2025-03-08] MEDS ORDERED: traMADol 50 MG TAB PO PRN ×2 (11:25)
[2025-03-08] MEDS ORDERED: HYDROCORTISONE 1% CREAM 30 GM TOP PRN (11:40)
[2025-03-08 12:00] VITALS: BP 122/66; TEMP 98; O2SAT 99
[2025-03-08] MEDS: FAMOTIDINE 20 MG TAB PO ONE (12:12)
[2025-03-08] MEDS: CETIRIZINE 10 MG TAB PO ONE (12:12)
[2025-03-08] MEDS: IBUPROFEN 800 MG TAB PO ONE (12:13)
[2025-03-08] MEDS ORDERED: IBUP-1114 PO (14:08)
[2025-03-08] MEDS ORDERED: TRAM50TA2 PO (14:08)
[2025-03-08] MEDS ORDERED: HYDR1CR TOP (14:08)
[2025-03-08] MEDS ORDERED: CARV6.25 PO (14:08)
[2025-03-08] MEDS ORDERED: CETI10TA PO (14:08)
[2025-03-08] MEDS ORDERED: ACET-683 PO (14:08)
[2025-03-08] MEDS: IBUPROFEN 400 MG TAB PO ONE (17:41)
[2025-03-08 20:00] VITALS: BP 116/62; TEMP 97.3; O2SAT 98
[2025-03-08] MEDS: IBUPROFEN 400 MG TAB PO SCH (21:19)
[2025-03-08] MEDS: OMEPRAZOLE 20MG CAP PO SCH (21:19)
[2025-03-09 05:00] VITALS: BP 149/75; TEMP 97.8; O2SAT 100
[2025-03-09 08:29] VITALS: BP 131/70
[2025-03-09 12:00] VITALS: BP 124/74; TEMP 97.9; O2SAT 97
[2025-03-09 19:56] VITALS: BP 135/66; TEMP 97.5; O2SAT 99
[2025-03-09] MEDS: CETIRIZINE 10 MG TAB PO SCH (21:23)
[2025-03-10 04:30] VITALS: BP 136/74; TEMP 97.4; O2SAT 98
[2025-03-10 08:13] VITALS: BP 130/68
[2025-03-10 12:00] VITALS: BP 123/60; TEMP 98.2; O2SAT 99
== END 2025-03-10 13:50 | disposition home or self-care (01) | DRG 560 ==
LOC: M PM&R 15:20
PROVIDERS: ADMIT Physical Medicine & Rehabilitation; ATTEND Physical Medicine & Rehabilitation
DX: S72.142D Displaced intertrochanteric fracture of left femur, subsequent encounter for closed fracture with routine healing (principal); D62 Acute posthemorrhagic anemia; Z79.01 Long term (current) use of anticoagulants; I48.0 Paroxysmal atrial fibrillation; K21.9 Gastro-esophageal reflux disease without esophagitis; G47.33 Obstructive sleep apnea (adult) (pediatric); Z88.0 Allergy status to penicillin; I95.1 Orthostatic hypotension; R11.2 Nausea with vomiting, unspecified; R21 Rash and other nonspecific skin eruption; L53.8 Other specified erythematous conditions; N41.9 Inflammatory disease of prostate, unspecified; Z79.899 Other long term (current) drug therapy; I10 Essential (primary) hypertension; L27.0 Generalized skin eruption due to drugs and medicaments taken internally

== ENCOUNTER → 2025-03-20 | Outpatient (REF) | payer MEDICARE, OTHER ==
[~2025-03-20] MED LIST changes: -BACTDSTA PO; +CETI10TA PO; +HYDR1CR TOP; +IBUP-1114 PO; +NORV5TAB PO; +SULF-8 PO; +TRAM50TA2 PO
[2025-03-20 18:28] LABS: ALT/SGPT 19.0 U/L (7.0-40); AST/SGOT 18.0 U/L (<34); CALCIUM LEVEL 9.0 MG/DL (8.3-10.6); CARBON DIOXIDE LEVEL 30.0 MMOL/L (20-31); CHLORIDE LEVEL 102.0 MMOL/L (98-107); CHOLESTEROL LEVEL 152.0 MG/DL (<200); CHOLESTEROL RISK RATIO 3.68 (<5); CREATININE FOR GFR 0.92 MG/DL (0.70-1.30); GLOMERULAR FILTRATION RATE 88.9 (>42); IRON (FE) 70.0 UG/DL (65-175); LDL CHOLESTEROL 93.6 MG/DL (<100); NON-HDL-C 110.8 MG/DL; PERCENT SATURATION 28.6 % (19.7-50.0); POTASSIUM SERUM 4.6 MMOL/L (3.5-5.1); SODIUM LEVEL 141.0 MMOL/L (136-145); TRIGLYCERIDES LEVEL 86.0 MG/DL (<150)
[2025-03-20 18:54] LABS: BASO # 0.1 10^3/uL (0.0-0.2); BASO % 1.2 % (0.0-1.0); EOS # 0.2 10^3/uL (0.0-0.5); EOS % 3.8 % (0.0-3.0); LYMPH # 1.6 10^3/uL (1.5-5.0); LYMPH % 31.4 % (24.0-44.0); MONO # 0.6 10^3/uL (0.0-0.8); MONO % 11.2 % (2.0-8.0); NEUTROPHILS # 2.6 10^3/uL (1.5-8.5); NEUTROPHILS % 52.0 % (36.0-66.0); PLATELET COUNT, AUTOMATED 359 10^3/uL (150-450)
== END ==
LOC: M SFHCCAPE 08:08
PROVIDERS: ATTEND Nurse Practitioner Family
DX: S72.002P Fracture of unspecified part of neck of left femur, subsequent encounter for closed fracture with malunion (principal); D50.9 Iron deficiency anemia, unspecified; I48.91 Unspecified atrial fibrillation; E78.00 Pure hypercholesterolemia, unspecified; Y93.9 Activity, unspecified; Y92.9 Unspecified place or not applicable

== ENCOUNTER → 2025-03-20 | Outpatient (REF) | payer MEDICARE, OTHER ==
[~2025-03-20] MED LIST changes: +BACTDSTA PO; -SULF-8 PO
[2025-03-21 11:06] LABS: ALT/SGPT 20.0 U/L (7.0-40); AST/SGOT 18.0 U/L (<34); CHOLESTEROL LEVEL 159.0 MG/DL (<200); CHOLESTEROL RISK RATIO 3.81 (<5); LDL CHOLESTEROL 99.5 MG/DL (<100); NON-HDL-C 117.3 MG/DL; TRIGLYCERIDES LEVEL 89.0 MG/DL (<150)
== END ==
LOC: M LABDRWCV 10:47
PROVIDERS: ATTEND Internal Medicine Cardiovascular Disease
DX: E78.00 Pure hypercholesterolemia, unspecified (principal)

== ENCOUNTER → 2025-03-20 | Outpatient (CLI) | payer MEDICARE, OTHER ==
[~2025-03-20] MED LIST changes: -BACTDSTA PO; +SULF-8 PO
== END ==
LOC: M SOG 07:21
PROVIDERS: ATTEND Physician Assistant
DX: S72.142A Displaced intertrochanteric fracture of left femur, initial encounter for closed fracture (principal); Y93.9 Activity, unspecified; Y92.9 Unspecified place or not applicable; S72.002P Fracture of unspecified part of neck of left femur, subsequent encounter for closed fracture with malunion; D50.9 Iron deficiency anemia, unspecified; I48.91 Unspecified atrial fibrillation; E78.00 Pure hypercholesterolemia, unspecified

== ENCOUNTER → 2025-04-08 | Outpatient (CLI) | payer MEDICARE, OTHER ==
[~2025-04-08] MED LIST changes: +BACTDSTA PO; -SULF-8 PO
== END ==
LOC: M PLAIMG 08:32
PROVIDERS: ATTEND Internal Medicine Cardiovascular Disease
DX: I51.7 Cardiomegaly (principal)

== ENCOUNTER → 2025-05-08 | Outpatient (CLI) | payer OTHER ==
[~2025-05-08] MED LIST changes: -BACTDSTA PO; +SULF-8 PO
== END ==
LOC: M SOG 07:38
PROVIDERS: ATTEND Orthopaedic Surgery
DX: S72.142D Displaced intertrochanteric fracture of left femur, subsequent encounter for closed fracture with routine healing (principal)

== ENCOUNTER → 2025-05-20 | Outpatient (CLI) | payer MEDICARE, OTHER | LOC: M SLEEP HO 10:55 | PROVIDERS: ATTEND Physician Assistant | DX: I27.81 Cor pulmonale (chronic) (principal); R06.83 Snoring ==